=== PATIENT | male | born 1980 | race Caucasian/White ===

== ENCOUNTER 2021-11-10 13:41 | Emergency (ER) | payer OTHER ==
[2021-11-10 13:45] VITALS: BP 123/66; PULSE 63; RESP 18; TEMP 98.1; BMI 22.7
[2021-11-10] MEDS ORDERED: DIPHTH,PERTUSS(ACELL),TET 0.5 ML DISP.SYRIN IM ONE ×2 (14:19→14:20)
== END 2021-11-10 14:55 | disposition home or self-care (01) ==
LOC: JERFT 13:41
PROC: 3E0234Z Introduction of Serum, Toxoid and Vaccine into Muscle, Percutaneous Approach (ICD-10-PCS; principal; 2021-11-10)
DX: S61.412A Laceration without foreign body of left hand, initial encounter (principal); W25.XXXA Contact with sharp glass, initial encounter
CPT/HCPCS: 73130-TC-LT-FY; 90471; 90715; 99284-25

== ENCOUNTER 2022-10-07 16:46 | Emergency (ER) | payer OTHER ==
[2022-10-07 16:56] VITALS: BP 121/65; PULSE 60; RESP 18; TEMP 98; BMI 22.7
[2022-10-07 18:08] LABS: EPI CELLS 4 /uL (0-25.1); HYALINE CASTS 0 /uL (0-3.1); PH,URINE 6.5 (5.0-8.0); URINE APPEARANCE CLEAR; URINE BACTERIA 18 /uL (0-1359); URINE BILIRUBIN NEGATIVE (NEGATIVE); URINE COLOR YELLOW; URINE GLUCOSE (UA) NEGATIVE (NEGATIVE); URINE KETONE NEGATIVE (NEGATIVE); URINE LEUK ESTERASE NEGATIVE (NEGATIVE); URINE NITRITE NEGATIVE (NEGATIVE); URINE PROTEIN NEGATIVE (NEGATIVE); URINE RBC 66 /uL (0-23.9); URINE UROBILINOGEN 0.2 mg/dL (0.2-1.0); URINE WBC 5 /uL (0-25.8)
[2022-10-07 18:17] LABS: HCG,QUALITATIVE URINE Negative
[2022-10-07] MEDS ORDERED: ACETAMINOPHEN 500 MG TABLET (FP) PO ONE (18:20)
[2022-10-07] MEDS ORDERED: KETOROLAC TROMETHAMINE 30 MG/1 ML VIAL IM ONE (18:20)
[2022-10-07] MEDS ORDERED: ACETAMINOPHEN 500 MG TABLET (FP) ONE (18:22)
[2022-10-07] MEDS ORDERED: KETOROLAC TROMETHAMINE 30 MG/1 ML VIAL ONE (18:22)
[2022-10-07] MEDS ORDERED: ACETAMINOPHEN 325 MG TABLET (FP) ONE (18:24)
[2022-10-07] MEDS ORDERED: TAMSULOSIN HCL 0.4 MG CAP ONE (20:50)
== END 2022-10-07 21:18 | disposition home or self-care (01) ==
LOC: JER 16:46
PROC: 3E0233Z Introduction of Anti-inflammatory into Muscle, Percutaneous Approach (ICD-10-PCS; principal; 2022-10-07)
DX: M54.9 Dorsalgia, unspecified (principal); N20.0 Calculus of kidney
CPT/HCPCS: 74176-TC; 81003; 84703; 99284-25

== ENCOUNTER → 2022-12-15 | Day surgery (SDC) | payer OTHER ==
[2022-12-11 17:53] VITALS: BMI 22.7
[~2022-12-15] MED LIST: MIDAZOLAM HCL 2 MG/2 ML SINGLE DOSE VIAL ONE
== END | disposition home or self-care (01) ==
LOC: JASU-SURG 04:10
PROVIDERS: ATTEND Urology
DX: Z53.8 Procedure and treatment not carried out for other reasons (principal)